=== PATIENT | female | born 1990 | race Caucasian/White ===

== ENCOUNTER 2024-05-01 03:35 | Emergency (ER) | payer SELFPAY ==
[~2024-05-01] VITALS: Ht 165.1 cm; Wt 87.9 kg
[2024-05-01 03:46] VITALS: TEMP 98
[2024-05-01] MEDS ORDERED: LIDOCAINE 2% (20mg/ml) w/EPINEPHRINE 1:200,000-PF 10 ML inj. SQ ONE (03:55)
[2024-05-01] MEDS: LORazepam 1 MG tablet PO ONE (03:57)
[2024-05-01] MEDS: LIDOcaine 1% W/epiNEPHrine 1:100,000 20ml vial IJ ONE (04:52)
[2024-05-01] MEDS: bacitracin 15gm ointment TP ONE (05:26)
[2024-05-01 05:29] VITALS: BP 108/71; PULSE 90; RESP 18; O2SAT 99
== END 2024-05-01 05:31 | disposition home or self-care (01) ==
LOC: ER 03:36
DX: S81.811A Laceration without foreign body, right lower leg, initial encounter (principal); W01.0XXA Fall on same level from slipping, tripping and stumbling without subsequent striking against object, initial encounter; Y93.89 Activity, other specified; Y92.89 Other specified places as the place of occurrence of the external cause; Y99.8 Other external cause status
CPT/HCPCS: 12002; 99283; A6222; J3490; A6402; A6449